=== PATIENT | male | born 2000 | race Caucasian/White ===

== ENCOUNTER → 2025-09-26 08:04 | Outpatient (REF) | payer BC, SELFPAY ==
[2025-09-26 09:23] LABS: Hematocrit 41.0 % (39.0-52.0); Hemoglobin 13.9 g/dL (13.0-18.0); Mean Corp Hgb Conc. 33.9 g/dL (33.0-37.0); Mean Corpuscular Volume 79.9 fL (80.0-94.0); Nucleated Red Blood Cells % 0 % (-); Platelet Count 351 10^3/uL (130-400); Red Cell Dist. Width 12.6 % (11.5-14.5)
[2025-09-26 09:50] LABS: ALT (SGPT) 24 U/L (0-50); AST (SGOT) 17 U/L (17-59); Albumin 4.6 g/dl (3.5-5.0); Alkaline Phosphatase 63 U/L (38-126); Blood Urea Nitrogen 11 mg/dl (9-20); Calcium 9.4 mg/dl (8.4-10.2); Carbon Dioxide 27 mmol/L (22-30); Chloride 103 mmol/L (98-107); Glucose 86 mg/dl (70-99); HDL Cholesterol 40 mg/dl; LDL Cholesterol, Calculated 118 mg/dl; Potassium 4.1 mmol/L (3.5-5.1); Sodium 137 mmol/L (135-145); Total Protein 6.8 g/dl (6.3-8.2); Very Low Density Lipoprotein 13 mg/dl (0-30); eGFR > 60.00
[2025-09-26 10:00] LABS: Urine Character Clear (Clear)
[2025-09-26 10:22] LABS: Cortisol, Random 7.6 ug/dl
[2025-09-26 10:41] LABS: Vitamin B12 468 pg/ml (239-931)
[2025-09-26 10:45] LABS: Urine Red Blood Cell 0-2 /HPF (0-2); Urine Squamous Cell 0-2 /LPF (Few); Urine White Cell 0-2 /HPF (0-5)
[2025-09-29 09:13] LABS: Aldosterone/Renin Activ Ratio 27.8 ratio (<=25.0); Renin Activity Results 0.5 ng/mL/hr
== END ==
LOC: REG 08:04
PROVIDERS: ATTENDING PHYSICIAN Family Medicine
DX: I10 Essential (primary) hypertension (principal); I15.9 Secondary hypertension, unspecified; G62.9 Polyneuropathy, unspecified; Z13.220 Encounter for screening for lipoid disorders
CPT/HCPCS: 36415; 80053; 80061; 81003; 81015; 82088; 82533; 82607; 84244; 84443; 85025